=== PATIENT | female | born 1990 | race Caucasian/White ===

== ENCOUNTER 2018-09-11 17:02 | Emergency (ER) | payer MEDICAID ==
[2018-09-11 17:33] VITALS: BP 112/74
[2018-09-11 17:53] LABS: BILIRUBIN,URINE NEGATIVE (NEGATIVE); GLUCOSE, URINE (UA) NEGATIVE (NEGATIVE); KETONES,URINE (UA) NEGATIVE (NEGATIVE); LEUKOCYTE ESTERASE, URINE NEGATIVE (NEGATIVE); NITRITE,URINE NEGATIVE (NEGATIVE); OCCULT BLOOD,URINE NEGATIVE (NEGATIVE); PROTEIN,URINE NEGATIVE (NEGATIVE); UROBILINOGEN,URINE 0.2 (NORMAL) E.U./dL (NORMAL)
[2018-09-11 17:56] LABS: CLARITY,URINE CLEAR (CLEAR)
[2018-09-11 18:04] LABS: BASOPHILS # (AUTO) 0.1 10^3/uL (0.0-0.1); BASOPHILS % (AUTO) 0.7 %; EOSINOPHILS # (AUTO) 0.1 10^3/uL (0.0-0.7); EOSINOPHILS % (AUTO) 1.6 %; HGB - HEMOGLOBIN 13.8 g/dL (12.0-16.0); LYMPHOCYTES # (AUTO) 1.7 10^3/uL (1.5-3.5); LYMPHOCYTES % (AUTO) 24.4 %; MEAN CORPUSCULAR HGB CONC 34.4 g/dL (32.0-36.0); MEAN CORPUSCULAR VOLUME 93.2 fL (81.0-99.0); MEAN PLATELET VOLUME 8.4 fL (7.9-10.8); MONOCYTES # (AUTO) 0.7 10^3/uL (0.0-1.0); MONOCYTES % (AUTO) 10.2 %; NEUTROPHILS # (AUTO) 4.3 10^3/uL (1.5-6.6); NEUTROPHILS % (AUTO) 63.1 %; PLT - PLATELET COUNT 255 10^3/uL (130-450); RED BLOOD COUNT 4.31 10^6/uL (4.20-5.40); RED CELL DISTRIBUTION WIDTH 12.5 % (12.0-15.0); WHITE BLOOD COUNT 6.9 x10^3/uL (4.8-10.8)
[2018-09-11 18:24] LABS: ALBUMIN/GLOBULIN RATIO 1.3 (1.0-2.2); BILIRUBIN,TOTAL 0.4 mg/dL (0.2-1.0); CREATININE 0.7 mg/dL (0.4-1.0)
--- NOTE | 2018-09-11 18:54 | ED Physician Documentation ---
History of Present Illness - Stated complaint Stated Complaint: 5 WKS/HEART PALP/DIAH - Chief complaint Chief Complaint: General - History obtained from History obtained from: Patient - History of Present Illness Timing: Other (This is a 27-year-old who presents with diarrhea since yesterday. She has a history of ulcerative colitis and was on mesalamine previously but it gave her palpitations. She has had slight blood in the diarrhea. The palpitations have been worse over the last 24 hours. It is 10-15 seconds at a time of subjective tachycardia. Her PCP is planning a Holter monitor for same. Beta-blockers have been suggested in the past but she runs a low blood pressure.) Review of Systems Constitutional: denies: Fever, Chills Cardiac: reports: Palpitations. denies: Chest pain / pressure Respiratory: denies: Dyspnea, Cough GI: reports: Abdominal Pain, Nausea, Diarrhea. 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 : None HEENT: None Psych: None Musculoskeletal: None Derm: None - Past Surgical History Past Surgical History: No - Present Medications Home Medications: Ambulatory Orders Medication Instructions Recorded Confirmed predniSONE [Deltasone] 20 mg PO DAILY #5 tablet 09/11/18 - Allergies Allergies/Adverse Reactions: Allergies Allergy/AdvReac Type Severity Reaction Status Date / Time No Known Drug Allergies Allergy Verified 09/11/18 17:33 - Social History Does the pt smoke?: No Smoking Status: Never smoker Does the pt drink ETOH?: No Does the pt have substance abuse?: No - Immunizations Immunizations are current?: Yes - POLST Patient has POLST: No PD ED PE NORMAL - Vitals Vital signs reviewed: Yes - General General: Alert and oriented X 3, No acute distress - HEENT HEENT: PERRL, EOMI - Neck Neck: Supple, no meningeal sign, No bony TTP - Cardiac Cardiac: RRR, No murmur - Respiratory Respiratory: No respiratory distress, Clear bilaterally - Abdomen Abdomen: Non tender - Back Back: No CVA TTP, No spinal TTP - Derm Derm: Normal color, Warm and dry - Neuro Neuro: Alert and oriented X 3, Normal speech Results - Vitals Vitals: Vital Signs - 24 hr 09/11/18 17:25 Temperature 36.1 C L Heart Rate 64 Respiratory 16 Rate Blood Pressure 112/74 O2 Saturation 98 Oxygen O2 Source Room air - EKG (time done) 1716 Rate: Rate (enter#) (83) Rhythm: NSR [place]: Normal Intervals: Normal SD QRS: Normal Ischemia: Normal ST segments Computer interpretation: Agree with computer - Labs Labs: Laboratory Tests 09/11/18 09/11/18 09/11/18 17:35 18:00 18:00 WBC 6.9 RBC 4.31 Hgb 13.8 Hct 40.2 MCV 93.2 MCH 32.0 H MCHC 34.4 RDW 12.5 Plt Count 255 MPV 8.4 Neut # (Auto) 4.3 Lymph # (Auto) 1.7 [place] # (Auto) 0.7 Eos # (Auto) 0.1 Baso # (Auto) 0.1 Absolute Nucleated RBC 0.00 Nucleated RBC % 0.0 Sodium 139 Potassium 3.6 Chloride 105 Carbon Dioxide 25 Anion Gap 9.0 BUN 7 Creatinine 0.7 Estimated GFR (MDRD) 102 Glucose 110 H Calcium 9.0 Total Bilirubin 0.4 AST 18 ALT 15 Alkaline Phosphatase 42 Total Protein 7.0 Albumin 4.0 Globulin 3.0 Albumin/Globulin Ratio 1.3 Lipase 30 Urine Color YELLOW Urine Clarity CLEAR Urine pH 6.0 Ur Specific [place] 1.025 Urine Protein NEGATIVE Urine Glucose (UA) NEGATIVE Urine Ketones NEGATIVE Urine Occult Blood NEGATIVE Urine Nitrite NEGATIVE Urine Bilirubin NEGATIVE Urine Urobilinogen 0.2 (NORMAL) Ur Leukocyte Esterase NEGATIVE Ur Microscopic Review NOT INDICATED Urine Culture Comments NOT INDICATED PD MEDICAL DECISION MAKING - ED course ED course: 27-year-old woman with chronic palpitations that are worse with what sounds like a UC flare. Her labs are benign as is her examination. She does not appear dehydrated. We will trial a low-dose of steroid. Departure - Departure Disposition: 01 Home, Self Care Clinical Impression: Heart palpitations Ulcerative colitis Qualifiers: Ulcerative colitis location: unspecified ulcerative colitis location Digestive disease complication type: unspecified complication Qualified Code(s): K51.919 - Ulcerative colitis, unspecified with unspecified complications Condition: Good Record reviewed to determine appropriate education?: Yes Instructions: Colitis Ulcerative Dc Prescriptions: predniSONE [Deltasone] 20 mg PO DAILY #5 tablet Comments: Call your doctor to arrange a follow-up appointment, make the next available appointment. In the interim, return anytime if worse or if new symptoms develop.
== END 2018-09-11 19:05 | disposition home or self-care (01) ==
LOC: ED 17:02
DX: R00.2 Palpitations (principal); K51.919 Ulcerative colitis, unspecified with unspecified complications
CPT/HCPCS: 36415; 80053; 81001; 81003; 83690; 85025; 87086; 93005; 99283

== ENCOUNTER 2018-09-15 09:21 | Emergency (ER) | payer MEDICAID ==
[2018-09-15 09:54] VITALS: BP 108/82
--- NOTE | 2018-09-15 10:11 | ED Physician Documentation ---
PD HPI NVD - Stated complaint Stated Complaint: BLOOD IN STOOL/6WKS PREG - Chief complaint Chief Complaint: Abd Pain - History obtained from History obtained from: Patient - History of Present Illness Timing - onset: How many weeks ago (2) Timing - duration: Weeks (2) Timing - details: Gradual onset, Still present, Waxing and waning Associated symptoms: Abdominal pain, Hematochezia Contributing factors: No: Sick contact, Bad food, Recent antibiotics, Alcohol use, Anticoagulated, Diabetes Improved by: Meds Similar symptoms before: Diagnosis (UC) Recently seen: Emergency Dept - Additonal information Additional information: 27-year-old female with a history of ulcerative colitis has developed diarrhea which is bloody over the past 2 weeks that has been progressively worse and despite the use of prednisone at 40 mg daily she has not had improvement. She has had prior experience with mesalamine enema causing heart palpitations and she has discussed starting sulfasalazine with her primary care doctor. She is about 6 weeks . Review of Systems Constitutional: reports: Chills, Fatigue. denies: Fever Eyes: denies: Decreased vision Ears: denies: Ear pain Nose: denies: Rhinorrhea / runny nose, Congestion Throat: denies: Sore throat Cardiac: denies: Chest pain / pressure, Palpitations Respiratory: denies: Dyspnea, Cough GI: reports: Abdominal Pain, Diarrhea, Bloody / black stool. 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 : None HEENT: None Psych: None Musculoskeletal: None Derm: None - Past Surgical History Past Surgical History: No - Present Medications Home Medications: Ambulatory Orders Medication Instructions Recorded Confirmed predniSONE [Deltasone] 20 mg PO DAILY #5 tablet 09/11/18 sulfaSALAzine [Azulfidine] 1,000 mg PO QID #40 tablet 09/15/18 - Allergies Allergies/Adverse Reactions: Allergies Allergy/AdvReac Type Severity Reaction Status Date / Time No Known Drug Allergies Allergy Verified 09/11/18 17:33 - Social History Does the pt smoke?: No Smoking Status: Never smoker Does the pt drink ETOH?: No Does the pt have substance abuse?: No - Immunizations Immunizations are current?: Yes - POLST Patient has POLST: No PD ED PE NORMAL - Vitals Vital signs reviewed: Yes (normal ) - General General: Alert and oriented X 3, No acute distress, Well developed/nourished - HEENT HEENT: Atraumatic, PERRL, EOMI - Neck Neck: Supple, no meningeal sign - Cardiac Cardiac: RRR, No murmur - Respiratory Respiratory: No respiratory distress, Clear bilaterally - Abdomen Abdomen: Soft, Non tender - Back Back: No CVA TTP, No spinal TTP - Derm Derm: Normal color, Warm and dry, No rash - Extremities Extremities: No deformity, No edema - Neuro Neuro: Alert and oriented X 3, centerless grinder tender 2-12 intact, No motor deficit, No sensory deficit, Normal speech Eye Opening: Spontaneous Motor: Obeys Commands Verbal: Oriented GCS Score: 15 - Psych Psych: Normal mood, Normal affect Results - Vitals Vitals: Vital Signs - 24 hr 09/15/18 09/15/18 09:35 09:51 Temperature 36.7 C Heart Rate 93 78 Respiratory 16 18 Rate Blood Pressure 129/77 108/82 H O2 Saturation 100 100 Oxygen O2 Source Room air Procedures - IVC sono (time) 1000 Bedside IVC sono: IVC measures (cm) (1.68), Euvolemia PD MEDICAL DECISION MAKING - ED course Complexity details: reviewed results, re-evaluated patient, considered differential, d/w patient ED course: 27-year-old female who is 6 weeks with history of ulcerative colitis is ready to start on sulfasalazine. She will require additional folic acid along with sulfasalazine which is registered as safe during . Departure - Departure Disposition: 01 Home, Self Care Clinical Impression: Ulcerative colitis Qualifiers: Ulcerative colitis location: unspecified ulcerative colitis location Digestive disease complication type: with rectal bleeding Qualified Code(s): K51.911 - Ulcerative colitis, unspecified with rectal bleeding Instructions: ED Colitis Ulcerative Follow-Up: Millie Vaughn MD [Physician No Access] - Prescriptions: sulfaSALAzine [Azulfidine] 1,000 mg PO QID #40 tablet Comments: Today we are going to start you on the sulfasalazine. You will need to take this 4 times per day. Because you are and you are taking the sulfasalazine you will need to take additional folic acid. You should take 2 mg/day.
== END 2018-09-15 10:25 | disposition home or self-care (01) ==
LOC: ED 09:21
DX: O99.611 Diseases of the digestive system complicating pregnancy, first trimester (principal); Z3A.01 Less than 8 weeks gestation of pregnancy; K51.911 Ulcerative colitis, unspecified with rectal bleeding
CPT/HCPCS: 99283

== ENCOUNTER 2018-09-19 15:48 | Emergency (ER) | payer MEDICAID ==
[2018-09-19 16:16] LABS: BASOPHILS % (AUTO) 0.4 %; EOSINOPHILS % (AUTO) 0.6 %; LYMPHOCYTES # (AUTO) 1.2 10^3/uL (1.5-3.5); LYMPHOCYTES % (AUTO) 17.8 %; MEAN CORPUSCULAR HEMOGLOBIN 31.1 pg (27.0-31.0); MEAN CORPUSCULAR HGB CONC 33.9 g/dL (32.0-36.0); MEAN CORPUSCULAR VOLUME 91.8 fL (81.0-99.0); MEAN PLATELET VOLUME 7.8 fL (7.9-10.8); MONOCYTES % (AUTO) 14.9 %; NEUTROPHILS # (AUTO) 4.3 10^3/uL (1.5-6.6); NEUTROPHILS % (AUTO) 66.3 %; PLT - PLATELET COUNT 261 10^3/uL (130-450); RED BLOOD COUNT 4.49 10^6/uL (4.20-5.40); RED CELL DISTRIBUTION WIDTH 12.4 % (12.0-15.0); WHITE BLOOD COUNT 6.5 x10^3/uL (4.8-10.8)
[2018-09-19 16:32] LABS: ALBUMIN 3.7 g/dL (3.2-5.5); ALBUMIN/GLOBULIN RATIO 12.3 (1.0-2.2); BILIRUBIN,TOTAL 0.3 mg/dL (0.2-1.0); CALCIUM 8.8 mg/dL (8.5-10.3); CREATININE 0.6 mg/dL (0.4-1.0)
[2018-09-19 16:49] LABS: THYROID STIMULATING HORMONE 0.42 uIU/mL (0.34-5.60)
[2018-09-19 16:51] LABS: FREE T4 (FREE THYROXINE) 1.32 ng/dL (0.58-1.64)
[2018-09-19] MEDS ORDERED: SODIUM CHLORIDE 0.9% 1,000 ML IV ONE (16:58)
[2018-09-19] MEDS ORDERED: POTASSIUM BICARB 25 MEQ TABLET PO STA (17:00)
--- NOTE | 2018-09-19 17:14 | ED Physician Documentation ---
History of Present Illness - Stated complaint Stated Complaint: ABNORMAL LABS/6 WKS - Chief complaint Chief Complaint: General - History obtained from History obtained from: Patient - History of Present Illness Timing: How many days ago (several) Pain level max: 4 Pain level now: 4 Improved by: nothing Worsened by: nothing - Additonal information Additional information: 27 y/o F with UC. states continued diarrhea, nausea, vomiting. Increased prednisone last week. She is approximately 7 weeks . Had an ultrasound yesterday which showed a gestational sac but no IUP visible. No abdominal pain or cramping today. 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 : None HEENT: None Psych: None Musculoskeletal: None Derm: None - Past Surgical History Past Surgical History: No - Present Medications Home Medications: Ambulatory Orders Medication Instructions Recorded Confirmed predniSONE [Deltasone] 20 mg PO DAILY #5 tablet 09/11/18 09/19/18 sulfaSALAzine [Azulfidine] 1,000 mg PO QID #40 tablet 09/15/18 09/19/18 - Allergies Allergies/Adverse Reactions: Allergies Allergy/AdvReac Type Severity Reaction Status Date / Time mesalamine [From [place]] Allergy Unknown Verified 09/19/18 16:00 - Social History Does the pt smoke?: No Smoking Status: Never smoker Does the pt drink ETOH?: No Does the pt have substance abuse?: No - Immunizations Immunizations are current?: Yes - POLST Patient has POLST: No PD ED PE NORMAL - Vitals Vital signs reviewed: Yes - General General: Alert and oriented X 3, No acute distress - HEENT HEENT: Moist mucous membranes, Pharynx benign - Neck Neck: Supple, no meningeal sign - Cardiac Cardiac: RRR, Strong equal pulses - Respiratory Respiratory: No respiratory distress, Clear bilaterally - Abdomen Abdomen: Soft, Non tender, Non distended - Derm Derm: Warm and dry, No rash - Neuro Neuro: Alert and oriented X 3 - Psych Psych: Normal mood, Normal affect Results - Vitals Vitals: Vital Signs - 24 hr 09/19/18 09/19/18 09/19/18 15:57 18:59 19:00 Temperature 36.4 C L Heart Rate 84 72 72 Respiratory 20 16 16 Rate Blood Pressure 111/70 106/74 102/70 O2 Saturation 98 98 98 Oxygen O2 Source Room air - Labs Labs: Laboratory Tests 09/19/18 09/19/18 09/19/18 16:10 16:10 16:10 WBC 6.5 RBC 4.49 Hgb 14.0 Hct 41.2 MCV 91.8 MCH 31.1 H MCHC 33.9 RDW 12.4 Plt Count 261 MPV 7.8 L Neut # (Auto) 4.3 Lymph # (Auto) 1.2 L [place] # (Auto) 1.0 Eos # (Auto) 0.0 Baso # (Auto) 0.0 Absolute Nucleated RBC 0.00 Nucleated RBC % 0.0 Sodium 132 L Potassium 2.8 L Chloride 97 L Carbon Dioxide 25 Anion Gap 10.0 BUN 8 Creatinine 0.6 Estimated GFR (MDRD) 122 Glucose 121 H Calcium 8.8 Phosphorus Magnesium Total Bilirubin 0.3 AST 15 ALT 15 Alkaline Phosphatase 56 Total Protein 4.0 L Albumin 3.7 Globulin 0.3 L Albumin/Globulin Ratio 12.3 H Lipase 24 TSH 0.42 Free T4 1.32 Urine Color Urine Clarity Urine pH Ur Specific [place] Urine Protein Urine Glucose (UA) Urine Ketones Urine Occult Blood Urine Nitrite Urine Bilirubin Urine Urobilinogen Ur Leukocyte Esterase Urine RBC Urine WBC Ur Squamous Epith Cells Amorphous Sediment Urine Bacteria Urine Mucus Ur Microscopic Review Urine Culture Comments 09/19/18 09/19/18 16:10 17:15 WBC RBC Hgb Hct MCV MCH MCHC RDW Plt Count MPV Neut # (Auto) Lymph # (Auto) [place] # (Auto) Eos # (Auto) Baso # (Auto) Absolute Nucleated RBC Nucleated RBC % Sodium Potassium Chloride Carbon Dioxide Anion Gap BUN Creatinine Estimated GFR (MDRD) Glucose Calcium Phosphorus 3.0 Magnesium 2.2 Total Bilirubin AST ALT Alkaline Phosphatase Total Protein Albumin Globulin Albumin/Globulin Ratio Lipase TSH Free T4 Urine Color YELLOW Urine Clarity CLEAR Urine pH 6.5 Ur Specific [place] 1.010 Urine Protein NEGATIVE Urine Glucose (UA) 100 H Urine Ketones NEGATIVE Urine Occult Blood NEGATIVE Urine Nitrite NEGATIVE Urine Bilirubin NEGATIVE Urine Urobilinogen 0.2 (NORMAL) Ur Leukocyte Esterase TRACE H Urine RBC None Seen Urine WBC 0-3 Ur Squamous Epith Cells MOD Squamous H Amorphous Sediment Moderate Urine Bacteria None Seen Urine Mucus Moderate Strands Ur Microscopic Review INDICATED Urine Culture Comments NOT INDICATED PD MEDICAL DECISION MAKING - ED course Complexity details: reviewed results, re-evaluated patient, considered differential, d/w patient ED course: 27-year-old female with hypokalemia, hyponatremia. Given IV fluids. Potassium replaced orally. Tolerated well. Feels better. No other acute laboratory abnormalities. Discussed the case with Dr. Rodriguez, on-call for her OB who recommend she follow-up in the office tomorrow. Patient tolerating p.o. without difficulty and is comfortable with plan. Patient counseled regarding signs and symptoms for which I believe and urgent re-evaluation would be necessary. Patient with good understanding of and agreement to plan and is comfortable going home at this time This document was made in part using voice recognition software. While efforts are made to proofread this document, sound alike and grammatical errors may occur. Departure - Departure Disposition: 01 Home, Self Care Clinical Impression: Hypokalemia, Dehydration Ulcerative colitis Qualifiers: Ulcerative colitis location: other ulcerative colitis Digestive disease complication type: without complication Qualified Code(s): K51.80 - Other ulcerative colitis without complications Condition: Good Instructions: ED Dehydration, ED Diet High Potassium Follow-Up: Millie Vaughn MD [Primary Care Provider] - Within 3 Days Comments: Drink plenty of fluids at home. return if you worsen. Call Dr. Vaughn's office tomorrow. I spoke with Dr. Michael avitia. Discharge Date/Time: 09/19/18 19:19
[2018-09-19 17:20] LABS: MAGNESIUM 2.2 mg/dL (1.7-2.8)
[2018-09-19 17:32] LABS: BILIRUBIN,URINE NEGATIVE (NEGATIVE); GLUCOSE, URINE (UA) 100 mg/dL (NEGATIVE); KETONES,URINE (UA) NEGATIVE (NEGATIVE); LEUKOCYTE ESTERASE, URINE TRACE (NEGATIVE); NITRITE,URINE NEGATIVE (NEGATIVE); OCCULT BLOOD,URINE NEGATIVE (NEGATIVE); PH,URINE 6.5 PH (5.0-7.5); PROTEIN,URINE NEGATIVE (NEGATIVE); UROBILINOGEN,URINE 0.2 (NORMAL) E.U./dL (NORMAL)
[2018-09-19 17:34] LABS: CLARITY,URINE CLEAR (CLEAR)
[2018-09-19 17:44] LABS: AMORPHOUS SEDIMENT,UR Moderate /LPF; BACTERIA,URINE None Seen /HPF (None Seen); MUCUS,URINE Moderate Strands; RBC,URINE None Seen /HPF (0-5); SQUAMOUS EPITHELIAL CELL,UR MOD Squamous (<= Few)
[2018-09-19 19:15] VITALS: BP 102/70
== END 2018-09-19 19:19 | disposition home or self-care (01) ==
LOC: ED 15:48
DX: E87.6 Hypokalemia (principal); E86.0 Dehydration; K51.80 Other ulcerative colitis without complications
CPT/HCPCS: 36415; 80053; 81001; 83690; 83735; 84100; 84439; 84443; 85025; 93005; 96360; 99283; A9270; 81003; 87086